=== PATIENT | female | born 1985 | race Caucasian/White ===

== ENCOUNTER → 2018-10-20 | Outpatient (CLI) | payer MEDICAID ==
[~2018-10-20] MED LIST: ALPR.5T PO; CATHETER FLUSH 10 ML SYR IV PRN; HYOS0.1281 PO; INDO25CA PO; LORA-794 PO; LTRS15C TOP; NF-ESOM40C PO; NFPRILOC40 PO; PANT20TA2 PO; SCR1T1 PO; [UNRECOGNIZED DRUG - OTHER]
--- NOTE | 2018-10-20 13:13 | Diagnostic Imaging Report ---
Indication: Right upper quadrant pain. Technique: Acquisitions were acquired over the abdomen after administration of 5.46 mCi of technetium 99m Choletec. At 45 minutes the patient drank a can of ensure to evaluate the ejection fraction. Findings: There is homogeneous uptake of isotope throughout the liver. There is significant accumulation within the gallbladder by 30 minutes. There is free flow of activity in small bowel. There was however an abnormally low ejection fraction of 21.3%. Impression: No evidence of cystic duct obstruction however there is an abnormally low ejection fraction of 21.3%. Dictated by: Dictated on workstation # [id number]
== END ==
LOC: MERGE 09:06 → CARD 09:06 → EDBD 09:06
PROVIDERS: ATTEND Surgery
DX: R10.11 Right upper quadrant pain (principal); K82.8 Other specified diseases of gallbladder
CPT/HCPCS: 78227

== ENCOUNTER 2018-10-28 05:47 | Outpatient (CLI) | payer MEDICAID ==
[~2018-10-28] VITALS: Ht 154.9 cm; Wt 93.4 kg
[~2018-10-28 05:47] MED LIST changes: -CATHETER FLUSH 10 ML SYR IV PRN
[2018-10-28] MEDS ORDERED: DEXL60CA PO (13:26)
== END 2018-10-28 13:44 | disposition home or self-care (01) ==
LOC: PREOP 05:47
PROVIDERS: ATTEND Surgery
DX: Z01.818 Encounter for other preprocedural examination (principal)

== ENCOUNTER 2018-10-30 11:47 | Day surgery (SDC) | payer MEDICAID ==
[~2018-10-30] VITALS: Ht 154.9 cm; Wt 93.4 kg
[~2018-10-30 11:47] MED LIST changes: +DEXL60CA PO
--- OUTSIDE RECORDS SUMMARY | 2018-10-30 11:50 | XMS REPORT ---
Author Author ANGELY [facility] Address Unknown Care Team Providers Care Mill Oiler Name Role Phone Nolan ANGELY Unavailable PROBLEMS Type Condition ICD9-CM Code WSC01-MT Code Onset Dates Condition Status SNOMED Code Problem Unspecified vaginitis and vulvovaginitis 616.10 Active 697357003 Problem Unspecified otitis media 382.9 Active 50371921 Problem Acute tonsillitis 463 Active 53759803 Problem Other specified viral warts 078.19 Active 63419623 Problem Abdominal pain, generalized 789.07 Active 619962197 Problem Dermatophytosis of groin and perianal area 110.3 Active 739267189 Problem Encounter for long-term (current) use of other medications V58.69 Active 495885631 Problem Obsessive-compulsive disorders 300.3 Active 679598216 Problem Posttraumatic stress disorder 309.81 Active 58693813 Problem Candidiasis of skin and nails 112.3 Active 447477900 Problem Generalized anxiety disorder 300.02 Active 59286832 Problem Unspecified myalgia and myositis 729.1 Active 190773538 Problem Cellulitis and abscess of face 682.0 Active 296411000 Problem Urinary frequency 788.41 Active 082379092 Problem Dysuria 788.1 Active 77960461 Problem Dyspareunia 625.0 Active 51253577 Problem Leukorrhea, not specified as infective 623.5 Active 642172862 Problem Irregular menstrual cycle 626.4 Active 11203325 Problem Urinary tract infection, site not specified 599.0 Active 71564682 Problem Unspecified symptom associated with female genital organs 625.9 Active 423623076 Problem Irritable bowel syndrome 564.1 Active 20510643 ALLERGIES Substance Reaction Event Type Date Status Penicillin G Potassium Unknown Drug Allergy Oct, Active SOCIAL HISTORY Never Assessed PLAN OF CARE Activity Details Follow Up prn Reason:Restorative; O&R VITAL SIGNS Height 61 in 2016-10-17 Blood pressure systolic 121 mmHg 2016-10-17 Blood pressure diastolic 73 mmHg 2016-10-17 MEDICATIONS Medication Instructions Dosage Frequency Start Date End Date Duration Status Protonix Active RESULTS No Results PROCEDURES Procedure Date Ordered Result Body Site LTD ORAL EVALUATION - PROBLEM FOCUS October 17, 2016 INTRAORL-PERIAPICAL 1 FILM 65209 October 17, 2016 INTRAORL-PERIAPICAL EA ADD FILM October 17, 2016 IMMUNIZATIONS No Known Immunizations MEDICAL (GENERAL) HISTORY Type Description Date Surgical History Tubes tie 05/23/13
--- OUTSIDE RECORDS SUMMARY | 2018-10-30 11:51 | XMS REPORT ---
Author Author KALIN OWUSU [facility] eClinicalWorks Address Unknown Phone Unavailable Care Team Providers Care Chain Maker Hand Name Role Phone KALIN OWUSU CP Unavailable Allergies, Adverse Reactions, Alerts Substance Reaction Event Type Penicillin G Potassium Info Not Available Drug Allergy Problems Problem Type Condition Code Onset Dates Condition Status Problem Generalized anxiety disorder 300.02 Active Problem Leukorrhea, not specified as infective 623.5 Active Problem Urinary tract infection, site not specified 599.0 Active Problem Candidiasis of skin and nails 112.3 Active Problem Posttraumatic stress disorder 309.81 Active Problem Urinary frequency 788.41 Active Assessment Dental examination Z01.20 Active Problem Unspecified vaginitis and vulvovaginitis 616.10 Active Problem Cellulitis and abscess of face 682.0 Active Problem Unspecified otitis media 382.9 Active Problem Dyspareunia 625.0 Active Problem Dysuria 788.1 Active Problem Irritable bowel syndrome 564.1 Active Problem Unspecified symptom associated with female genital organs 625.9 Active Problem Irregular menstrual cycle 626.4 Active Problem Abdominal pain, generalized 789.07 Active Problem Dermatophytosis of groin and perianal area 110.3 Active Problem Unspecified myalgia and myositis 729.1 Active Problem Acute tonsillitis 463 Active Problem Encounter for long-term (current) use of other medications V58.69 Active Problem Other specified viral warts 078.19 Active Problem Obsessive-compulsive disorders 300.3 Active Medications Medication Code System Code Instructions Start Date End Date Status Dosage Protonix [facility] [id number] not defined Procedures Procedure Coding System Code Date LTD ORAL EVALUATION - PROBLEM FOCUS CPT-4 D0140 March 15, 2016 Vital Signs Date/Time: March 15, 2016 Blood Pressure Diastolic 79 mmHg Blood Pressure Systolic 113 mmHg Height 61 in Results No Known Results Summary Purpose eClinicalWorks Submission
[2018-10-30] MEDS ORDERED: BUP/EPI 0.5% 1:200,000 (SENSORCAINE) 30 ML VIAL ONE (11:54)
[2018-10-30] MEDS ORDERED: LACTATED RINGERS 1,000 ML IV PRN ×2 (12:00→12:37)
[2018-10-30] MEDS ORDERED: CLINDAMYCIN 600 MG/50 ML IVPB 50 ML IV ONE (12:00)
[2018-10-30 12:05] VITALS: BP 127/80
[2018-10-30 12:32] LABS: BASOPHILS # (AUTO) 0.1 10^3/uL (0.0-0.1); BASOPHILS % (AUTO) 1 % (0-10); EOSINOPHILS # (AUTO) 0.2 10^3/uL (0.0-0.3); EOSINOPHILS % (AUTO) 2 % (0-10); HEMATOCRIT 42 % (35-52); LYMPHOCYTES # (AUTO) 2.2 X 10^3 (1.0-4.0); LYMPHOCYTES % (AUTO) 22 % (12-44); MEAN CORPUSCULAR HEMOGLOBIN 29 PG (25-34); MEAN CORPUSCULAR HGB CONC 34 G/DL (32-36); MEAN CORPUSCULAR VOLUME 86 FL (80-99); MEAN PLATELET VOLUME 9.7 FL (7.4-10.4); MONOCYTES # (AUTO) 0.7 X 10^3 (0.0-1.0); MONOCYTES % (AUTO) 7 % (0-12); NEUTROPHILS # (AUTO) 6.6 X 10^3 (1.8-7.8); NEUTROPHILS % (AUTO) 68 % (42-75); PLATELET COUNT 319 10^3/uL (130-400); RED CELL DISTRIBUTION WIDTH 12.5 % (10.0-14.5); WHITE BLOOD COUNT 9.6 10^3/uL (4.3-11.0)
--- NOTE | 2018-10-30 12:33 | Progress Note-Pre Operative ---
Pre-Operative Progress Note H&P Reviewed The H&P was reviewed, patient examined and no changes noted. Date Seen by Provider: Oct 30, 2018 Time Seen by Provider: 12:00 Date H&P Reviewed: Oct 30, 2018 Time H&P Reviewed: 12:00 Pre-Operative Diagnosis: symptomatic biliary dyskinesia FILOMENA LAWRENCE MD Oct 30, 2018 12:33
[2018-10-30] MEDS ORDERED: HYDR-34 PO (12:35)
--- NOTE | 2018-10-30 12:35 | Discharge Inst-Surgical ---
D/C Lap Instructions-MELINDA New, Converted, or Re-Newed RX: RX on Chart Follow Up Appt in 2 weeks Activity as tolerated No driving for 24 hours No driving while on pain medications Incentive Spirometry use every 2 hours while awake Regular Diet Symptoms to Report: Fever over 101 degree F, Nausea/Vomiting Infection Signs and Symptoms to report: Increased redness, Foul odor of wound, Increased drainage Bathing instructions: May shower Operative Area Clean/Dry; Keep incision clean/dry If any problems/questions: Contact your physician or go to Emergency Room FILOMENA LAWRENCE MD Oct 30, 2018 12:35
[2018-10-30] MEDS ORDERED: oxyCODONE/APAP 5/325MG (PERCOCET 5) TABLET PO PRN (12:45)
[2018-10-30] MEDS ORDERED: MIDAZOLAM 2 MG/2 ML (VERSED) VIAL IV ONE (12:45)
[2018-10-30] MEDS ORDERED: morphine INJ 10 MG/ML 1ML (SYR OR VIAL) IVP PRN (12:45)
[2018-10-30] MEDS ORDERED: ONDANSETRON 4 MG/2 ML (SDV) Z0FRAN IVP PRN ×2 (12:45→14:15)
[2018-10-30] MEDS ORDERED: ACETAMINOPHEN 325 MG TABLET PO PRN (12:45)
[2018-10-30] MEDS ORDERED: fentaNYL INJECTION 100 MCG/2 ML AMP ONE ×3 (13:03→14:18)
[2018-10-30] MEDS ORDERED: LIDOCAINE PF 2% 5 ML (XYLOCAINE) VIAL ONE (13:44)
[2018-10-30] MEDS ORDERED: SEVOFLURANE (ULTANE) 15 ML INHAL SOLN ONE ×2 (13:44→14:18)
[2018-10-30] MEDS ORDERED: DEXAMETHASONE 10 MG/ML (DECADRON) 1 ML VIAL ONE (13:44)
[2018-10-30] MEDS ORDERED: proPOfol 200 MG/20 ML (DIPRIVAN) VIAL IV ONE (13:44)
[2018-10-30] MEDS ORDERED: ONDANSETRON 4 MG/2 ML (SDV) Z0FRAN ONE (13:44)
[2018-10-30] MEDS ORDERED: ROCURONIUM 10 MG/ML 5 ML SYRINGE IV ONE (13:44)
[2018-10-30] MEDS ORDERED: KETOROLAC 30 MG/ML VIAL ONE (13:45)
[2018-10-30] MEDS ORDERED: NEOSTIGMINE 1 MG/ML 5 ML SYRINGE ONE (13:46)
[2018-10-30] MEDS ORDERED: GLYCOPYRROLATE 0.2 MG/ML (ROBINUL) 2 ML VIAL ONE (13:46)
[2018-10-30] MEDS ORDERED: fentaNYL INJECTION 100 MCG/2 ML AMP IVP ONE (14:15)
[2018-10-30] MEDS ORDERED: MEPERIDINE (DEMEROL) INJ 50 MG/ML IVP ONE (14:15)
[2018-10-30] MEDS ORDERED: PROMETHAZINE INJ 25 MG/ML (PHENERGAN) AMP IVP ONE (14:15)
--- NOTE | 2018-10-30 14:25 | Progress Note-Post Operative ---
Post-Operative Progess Note Surgeon (s)/Advanced Manager (s) Surgeon FILOMENA LAWRENCE MD Advanced Manager: rama king SUPERVISOR HOUSECLEANER Pre-Operative Diagnosis symptomatic biliary dyskinesia Post-Operative Diagnosis chronic calculous cholecystitis. Procedure & Operative Findings Date of Procedure 10/30/18 Procedure Performed/Findings laparoscopic cholecystectomy Anesthesia Type GET Estimated Blood Loss Estimated blood loss (mL): minimal Specimens/Packing Specimens Removed gallbladder FILOMENA LAWRENCE MD Oct 30, 2018 14:25
[2018-10-30 15:00] VITALS: BP 112/80
[2018-10-30 15:30] VITALS: BP 112/66
[2018-10-30 16:00] VITALS: BP 116/71
[2018-10-30 16:05] VITALS: BP 116/71
--- NOTE | 2018-10-30 18:57 | OPERATIVE REPORT ---
DATE OF SERVICE: 10/30/2018 ATTENDING PRIMARY CARE PHYSICIAN: Dr. Chika Camejo. PREOPERATIVE DIAGNOSIS: Symptomatic biliary dyskinesia. POSTOPERATIVE DIAGNOSIS: Chronic calculous cholecystitis. PROCEDURE: Laparoscopic cholecystectomy. SURGEON: Filomena Lawrence MD BREAKER TENDER: Hakeem Byrd APRN ANESTHESIA: General endotracheal. ESTIMATED BLOOD LOSS: Minimal. FINDINGS: Distended gallbladder with moderate sized solitary gallstone. DISPOSITION: The patient tolerated the procedure well. INDICATIONS: The patient is a 33-year-old female, who has had issues with reflux esophagitis and underwent an EGD in 2013, found to have a stage II reflux esophagitis as well as a small hiatal hernia and a mild to moderate gastritis. She also underwent a colonoscopy, which did not show any major abnormalities. She has developed epigastric pain as well as nausea and vomiting usually after a meal. An ultrasound did not show any gallstones and a HIDA scan was performed, which showed a normal ejection fraction; however, immediately after the administration of a Kinevac analogue, she did have abdominal bloating, diarrhea and right upper abdominal quadrant pain. DESCRIPTION OF PROCEDURE: The patient was brought to the operating room, laid supine on the table. After adequate IV pain and sedating medications and general endotracheal intubation, the abdomen was prepped and draped in standard surgical fashion. A 0.5% Marcaine with epinephrine was then used to anesthetize the overlying skin in the left upper abdominal quadrant and a transverse skin incision was made using 15 blade. An 0 silk suture was applied to the medial aspect of the incision for traction and a Veress needle was inserted with a low opening pressure of 0 mmHg. The abdomen was insufflated to 15 mmHg pressure. The Veress needle was removed and a 5 mm Xcel trocar was placed, followed by a 5 mm 45-degree angle laparoscope visualizing the peritoneal cavity. A 4-quadrant abdominal exploration was performed. There was a slightly distended gallbladder. What was visualized of the liver, omentum and stomach, small bowel appeared normal. Under direct visualization, we then proceed to place a supraumbilical 10 mm port after the skin and peritoneal lining were anesthetized using 0.5% Marcaine with epinephrine and a transverse skin incision was made using a 15 blade. In a similar manner, a right upper abdominal quadrant 5 mm port was placed. The patient was then placed in reverse Trendelenburg position as well as a plane right side up, left side down. The fundus of the gallbladder was then retracted anteriorly and superiorly. The hepatoduodenal ligament was then opened using blunt dissection as well as cautery on the hook instrument. The entire critical view of safety was identified including the triangle of Calot as well as the cystic duct and artery as the only two structures going into the gallbladder as well as the cystic plate behind the proximal gallbladder. A timeout was then taken and cystic duct and artery were then clipped proximally and distally and cut with EndoShears. The gallbladder was then dissected off of the liver bed using cautery on the hook instrument with visualization of good hemostasis as well as no leaking ducts of Luschka. The gallbladder was removed through the 10 mm port site using an EndoCatch bag. The 10 mm port site fascia and peritoneum were then closed under direct visualization using a Hakeem-Neelima device and 0 Vicryl suture. The abdomen was desufflated. The remaining ports removed. All skin incisions were closed using 4-0 Monocryl running subcuticular sutures. The gallbladder was examined on the backtable and a moderate size solitary gallstone was identified. The patient tolerated the procedure well. We will start IV and oral pain medication as well as a clear liquid diet. Once she is tolerating clears, has good pain control with oral pain medications, ambulating well, we will discharge her home. She will be instructed to do no heavy lifting or exertion for the next two weeks. Job ID: [id number] DocumentID: [id number] Dictated Date: 10/30/2018 13:56:12 Technical Sales Representative Date: 10/30/2018 18:56:59 Dictated By: FILOMENA LAWRENCE MD
== END 2018-10-30 16:05 | disposition home or self-care (01) ==
LOC: SDC 11:47
PROVIDERS: ATTEND Surgery
DX: K81.1 Chronic cholecystitis (principal); K21.9 Gastro-esophageal reflux disease without esophagitis; F17.210 Nicotine dependence, cigarettes, uncomplicated
CPT/HCPCS: 36415; 84703; 85025; 87081; 94664

== ENCOUNTER → 2019-05-18 | Outpatient (CLI) | payer MEDICAID ==
[~2019-05-18] MED LIST changes: +HYDR-34 PO
--- NOTE | 2019-05-18 13:17 | Diagnostic Imaging Report ---
EXAMINATION: Right ankle at 1227 hours. INDICATION: Ankle pain. Three views were obtained. COMPARISON: There are no prior studies available for comparison. FINDINGS: There is a small 4.6 x 7.9 mm smoothly lobulated calcific density interposed between the tip of the lateral malleolus and the lateral aspect of the talus. I suspect that this is a sequela of prior trauma as opposed to an acute injury. There is no fracture, dislocation or acute bony abnormality evident. The ankle mortise is not widened and the talar dome is smooth. There is soft tissue edema about the ankle joint, particularly over the lateral malleolus. IMPRESSION: 1. There is no evidence for an acute bony abnormality. 2. The calcific density interposed between the lateral malleolus and lateral aspect of the talus is more likely due to prior trauma than to an acute abnormality. Even so, clinical followup is recommended as there does seem to be soft tissue edema in this area. Dictated by: Dictated on workstation # [id number]
== END ==
LOC: RAD 12:16
PROVIDERS: ATTEND Nurse Practitioner Family
DX: M25.571 Pain in right ankle and joints of right foot (principal)
CPT/HCPCS: 73610

== ENCOUNTER → 2019-06-15 | Outpatient (CLI) | payer MEDICAID ==
--- NOTE | 2019-06-15 11:19 | Diagnostic Imaging Report ---
PROCEDURE: US Non-ob pelvis comp/trans. TECHNIQUE: Multiple realtime grayscale images were obtained of the pelvis in various projections endovaginally. Transabdominal imaging was also performed. INDICATION: Pelvic pain. Uterus measures 8.2 x 5.8 x 4.3 cm. Endometrium is 13 mm in thickness. No myometrial mass is detected. Right ovary measures 3.5 x 2.8 x 2.0 cm and the left ovary measures 3.1 x 1.9 x 1.9 cm. Right ovary does contain a 13 mm cyst. There are follicles involving the left ovary. There is blood flow to both ovaries. No adnexal mass or free fluid is seen. IMPRESSION: Small right ovarian cyst. The study is otherwise unremarkable. Dictated by: Dictated on workstation # [id number]
== END ==
LOC: RAD 09:31
PROVIDERS: ATTEND Family Medicine
DX: N83.201 Unspecified ovarian cyst, right side (principal)
CPT/HCPCS: 76830; 76856

== ENCOUNTER 2019-07-29 06:32 | Outpatient (CLI) | payer MEDICAID ==
[~2019-07-29] VITALS: Ht 152 cm; Wt 75.9 kg
[2019-07-29] MEDS ORDERED: DEXL60CA PO (14:08)
== END 2019-07-29 14:05 ==
LOC: PREOP 06:32
PROVIDERS: ATTEND Surgery
DX: Z01.818 Encounter for other preprocedural examination (principal)

== ENCOUNTER 2021-02-16 18:41 | Emergency (ER) | payer MEDICAID ==
[~2021-02-16] VITALS: Ht 152 cm; Wt 71.0 kg
--- NOTE | 2021-02-16 19:14 | ED EENT ---
History of Present Illness General Chief Complaint: Eye Problems Stated Complaint: SWOLLEN L EYE Nursing Triage Note: PT STATES LT EYE PAIN AND SWELLING FOR ABOUT 5 DAYS. BLURRY VISION. Source: patient Exam Limitations: no limitations History of Present Illness Date Seen by Provider: Feb 16, 2021 Time Seen by Provider: 19:00 Initial Comments Patient is a 35-year-old female who presents to the emergency department today with a chief complaint of left eyelid swelling and discomfort and a little bit of blurry vision. Pain with extraocular muscle movement on the left and pain in her left brow and in her left zygoma area. Patient states onset of symptoms about 5 or 6 days ago. Patient states that she has been using her sisters TobraDex drops multiple times throughout the day and this is day 3 of using the drops. She has had no improvement in symptoms. She denies fevers, chills, URI symptoms, no rhinorrhea sore throat earache. She states she did have a little bit of a sore throat the other day but that has resolved. Patient states she is not a diabetic. She denies any ocular trauma. She does not wear contact lenses. All other review of systems reviewed and negative except as stated above. Timing/Duration: gradual Location: eye (L) Prearrival Treatment: prescription meds Associated Symptoms: denies symptoms Allergies and Home Medications Allergies Coded Allergies: Penicillins (Unverified Allergy, Unknown, 07/29/19) Home Medications Dexlansoprazole 60 Mg , 60 MG PO DAILY, (Reported) Sulfamethoxazole/Trimethoprim 1 Each Tablet, 1 EACH PO BID Prescribed by: MURIEL ANN on 02/16/212056 Patient Home Medication List Home Medication List Reviewed: Yes Review of Systems Review of Systems Constitutional: see HPI Eyes: Blurred Vision, Decreased Acuity Ears: No Symptoms Reported Nose: no symptoms reported Mouth: no symptoms reported Throat: other (mild sore throat) Respiratory: no symptoms reported Cardiovascular: no symptoms reported Gastrointestinal: no symptoms reported Musculoskeletal: no symptoms reported Skin: no symptoms reported Neurological: No Symptoms Reported Past Vlhghic-Paulqy-Ezfxof Hx Patient Social History Tobacco Use?: Yes Tobacco type used: Cigarettes Smoking Status: Current Everyday Smoker Alcohol Use?: Yes Alcohol type: Beer Seasonal Allergies Seasonal Allergies: No Past Medical History Surgeries: Yes (D&C) Gallbladder, Tubal Ligation Respiratory: No Cardiac: No Neurological: No Last Menstrual Period: Jan 28, 2021 Sexually Transmitted Disease: No HIV/AIDS: No Genitourinary: No Gastrointestinal: Yes Gastroesophageal Reflux, Chronic Diarrhea Musculoskeletal: No Endocrine: No HEENT: Yes (GLASSES) Loss of Vision: Denies Hearing Impairment: Denies Cancer: No Psychosocial: Yes (MILD) Anxiety, Depression Integumentary: Yes Eczema Blood Disorders: No Adverse Reaction/Blood Tranf: No (N/A) Visual Acuity : Vision Acuity Degree: 20/20 Physical Exam Vital Signs Vital Signs - First Documented 02/16/21 18:52 Temp 36.5 Pulse 93 Resp 18 B/P (MAP) 125/94 (104) Pulse Ox 97 O2 Delivery Room Air Height, Weight, BMI Height: 5'1.00" Weight: 206lbs. 0.0oz. 93.381472ff; 30.00 BMI Method: General Appearance: WD/WN, no apparent distress Eyes: right eye normal inspection, right eye PERRL; left eye conjunctival inflammation, left eye lid inflammation (upper lid and medial canthus), left eye other (ciliary fluch mild); bilateral eye EOMI Nose: normal inspection Mouth/Throat: normal mouth inspection Cardiovascular: regular rate, rhythm Respiratory: no respiratory distress, no accessory muscle use Neurologic/Psychiatric: burglar alarm mechanic II-XII nml as tested, alert, normal mood/affect, oriented x 3 Skin: normal color, warm/dry Progress/Results/Core Measures Results/Orders My Orders Orders - MURIEL ANN MD Tetracaine 0.5% Ophth Nery Sdv (Tetracai (02/16/21 19:15) Fluorescein Strips (Ttjqs-Y-Qzbnpl) (02/16/21 19:15) Ct Orbit Wo (02/16/21 19:26) Prednisolone 1% Ophthalmic Nayeli (Pred For (02/16/21 21:00) Sulfamethoxazole/Trimet Ds Tab (Bactrim (02/16/21 21:00) Medications Given in ED Current Medications Medications Dose Ordered Sig/Kimo Route Start Time Stop Time Status Last Admin Dose Admin Fluorescein Sodium 1 mg ONCE ONCE OU 02/16/21 19:15 02/16/21 19:16 DC 02/16/21 19:09 1 MG Tetracaine HCl 1 OR 2 DROPS INTO AFFEC... ONCE ONCE OP 02/16/21 19:15 02/16/21 19:16 DC 02/16/21 19:09 1 ML Trimethoprim/ Sulfamethoxazole 1 ea ONCE ONCE PO 02/16/21 21:00 02/16/21 21:01 DC 02/16/21 21:13 1 EA Vital Signs/I&O 02/16/21 02/16/21 18:52 21:16 Temp 36.5 36.5 Pulse 93 93 Resp 18 18 B/P (MAP) 125/94 (104) 125/94 (104) Pulse Ox 97 97 O2 Delivery Room Air Blood Pressure Mean: 104 Progress Progress Note : Time: 19:32 Progress Note Case discussed with Dr. VELA on for optometry. Recommends in favor of CT in the orbits without contrast. Attention to the thickness of the extraocular muscles. He recommends Pred forte every 2 hours while she is awake until they can see her in the office at 8 AM in the morning. He also recommends cycloplegic to the left eye which will help her with her photophobia. CT of the orbits is ordered at this time. Pending results. Diagnostic Imaging Diagonstic Imaging: CT Comments [facility], [place] NAME: CARMEN BUSH [facility] REC#: [id number] PT STATUS: REG ER : 1985 PHYSICIAN: MURIEL ANN MD ADMIT DATE: 02/16/21/ER Draft Date of Exam:02/16/21 CT ORBIT WO PROCEDURE: CT orbit without contrast. TECHNIQUE: Multiple contiguous axial images were obtained through the facial bones without the use of intravenous contrast. Auto Exposure Controls were utilized during the CT exam to meet ALARA standards for radiation dose reduction. INDICATION: Left eye pain and swelling for about 5 days. Blurry vision. EXAMINATION: CT orbits without contrast 02/16/2021 FINDINGS: Both globes are bilaterally symmetric in appearance with the post-septal spaces unremarkable. There is a soft tissue abnormality medial to the left lobe and lateral to the nasal bone measuring approximately 1 x 1.2 x 1.5 cm in size and nonspecific especially without contrast. This could be on the basis of an inflammatory or infectious etiology with a soft tissue mass not excluded. Clinical correlation with history and symptoms recommended. Remaining visualized soft tissues unremarkable. The osseous structures intact. There is mucosal thickening within the visualized paranasal sinuses with no acute sinus disease appreciated. Visualized mastoid air cells clear IMPRESSION: 1. Nonspecific soft tissue abnormality medial to the left globe as described above. Dictated on workstation # [id number] Dict: 02/16/212001 Trans: 02/16/212027 CV [id number] Interpreted by: YENI ISSA MD Electronically signed by: Departure Impression Primary Impression: Preseptal cellulitis of left eye Disposition: HOME, SELF-CARE Condition: Stable Departure-Patient Inst. Decision time for Depature: 20:53 Referrals: MARILU VELA OD, RACHEL L MD (PCP/Family) Primary Care Physician Patient Instructions: Preseptal Cellulitis ED Add. Discharge Instructions: Take the antibiotics, Bactrim 1 twice daily for the next 5 days. Use the Pred forte drops 1 in the left eye every 2 hours while awake until you are seen tomorrow at Dr. VELA's office. Please show up at 8 AM at his office for follow-up of your left eye redness, swelling and pain. Return to the emergency room for any worsening swelling, eye pain, fever or other emergent concerns. We have given you a drop of an eye dilator. This will last for about the next 12 hours. Scripts Sulfamethoxazole/Trimethoprim (Bactrim Ds Tablet) 1 Each Tablet 1 EACH PO BID, #10 TAB Prov: MURIEL ANN MD 02/16/21 MURIEL ANN MD Feb 16, 2021 19:14
[2021-02-16] MEDS ORDERED: FLUORESCEIN (FLUOR-I-STRIPS) 1 MG STRP OU ONE (19:15)
[2021-02-16] MEDS ORDERED: TETRACAINE 0.5% OPHTH SOLN 4 ML BTL (SINGLE DOSE ONLY) OP ONE (19:15)
[2021-02-16] MEDS ORDERED: CYCLOPENTOLATE 1% OP SCH (20:15)
--- NOTE | 2021-02-16 20:30 | Diagnostic Imaging Report ---
PROCEDURE: CT orbit without contrast. TECHNIQUE: Multiple contiguous axial images were obtained through the facial bones without the use of intravenous contrast. Auto Exposure Controls were utilized during the CT exam to meet ALARA standards for radiation dose reduction. INDICATION: Left eye pain and swelling for about 5 days. Blurry vision. EXAMINATION: CT orbits without contrast 02/16/2021 FINDINGS: Both globes are bilaterally symmetric in appearance with the post-septal spaces unremarkable. There is a soft tissue abnormality medial to the left lobe and lateral to the nasal bone measuring approximately 1 x 1.2 x 1.5 cm in size and nonspecific especially without contrast. This could be on the basis of an inflammatory or infectious etiology with a soft tissue mass not excluded. Clinical correlation with history and symptoms recommended. Remaining visualized soft tissues unremarkable. The osseous structures intact. There is mucosal thickening within the visualized paranasal sinuses with no acute sinus disease appreciated. Visualized mastoid air cells clear IMPRESSION: 1. Nonspecific soft tissue abnormality medial to the left globe as described above. Clinical follow-up recommended. If this does not resolve follow-up CT with contrast or MRI recommended. Dictated by: Dictated on workstation # [id number]
[2021-02-16] MEDS ORDERED: SULF1TAB35 PO (20:57)
[2021-02-16] MEDS ORDERED: prednisoLONE 1% OPTH (PRED FORTE) 5 ML BTL OU SCH (21:00)
[2021-02-16] MEDS ORDERED: TRIM/SULFAMETH 160/800 (SEPTRA DS) TAB PO ONE (21:00)
[2021-02-16 21:16] VITALS: BP 125/94
== END 2021-02-16 21:16 | disposition home or self-care (01) ==
LOC: EDUNIT# 18:41 → ER 18:43
DX: H05.012 Cellulitis of left orbit (principal); K21.9 Gastro-esophageal reflux disease without esophagitis; F17.210 Nicotine dependence, cigarettes, uncomplicated; Z79.899 Other long term (current) drug therapy
CPT/HCPCS: 70480

== ENCOUNTER 2021-02-18 16:08 | Emergency (ER) | payer MEDICAID ==
[~2021-02-18] VITALS: Ht 152 cm; Wt 71.0 kg
[~2021-02-18 16:08] MED LIST changes: +SULF1TAB35 PO
[2021-02-18] MEDS ORDERED: TETRACAINE 0.5% OPHTH SOLN 4 ML BTL (SINGLE DOSE ONLY) ONE (16:38)
[2021-02-18] MEDS ORDERED: TETRACAINE 0.5% OPHTH SOLN 4 ML BTL (SINGLE DOSE ONLY) OU ONE (16:45)
--- NOTE | 2021-02-18 16:59 | ED EENT ---
History of Present Illness General Chief Complaint: Eye Problems Stated Complaint: DX W/ CELLULITIS L EYE/NOT IMPROVING Nursing Triage Note: PT PRESENTS TO ED VIA POV FROM HOME WITH COMPLAINTS OF L EYE LID SWELLING X 9 DAYS. PT REPORTS SHE HAS SEEN [facility] AND BEEN SEEN IN THE ED FOR IT. PT REPORTS AFTER 4 DOSES OF BACTRIM IT IS STILL NOT IMPROVING. Source: patient Exam Limitations: no limitations History of Present Illness Date Seen by Provider: Feb 18, 2021 Time Seen by Provider: 16:30 Initial Comments This 35-year-old woman presents to the emergency room with complaints of left upper eyelid swelling, pain, and erythema. She was diagnosed with periorbital cellulitis and started on Bactrim of which she is taken 4 doses. She was also started on TobraDex by the eye doctor. She has had increasing swelling. It is now apparent that she has an abscess that is coming to a head near the epicanthal fold. The area is extremely tender and painful. She denies any fever. She has had slightly blurry vision. No notable diplopia. Allergies and Home Medications Allergies Coded Allergies: Penicillins (Unverified Allergy, Unknown, 07/29/19) Home Medications Dexlansoprazole 60 Mg Cap., 60 MG PO DAILY, (Reported) Sulfamethoxazole/Trimethoprim 1 Each Tablet, 1 EACH PO BID Prescribed by: MURIEL ANN on 02/16/212056 Sulfamethoxazole/Trimethoprim 1 Each Tablet, 1 EACH PO BID Prescribed by: TERRELL TOLLIVER on 02/18/21 1724 Patient Home Medication List Home Medication List Reviewed: Yes Review of Systems Review of Systems Constitutional: no symptoms reported Eyes: See HPI Ears: No Symptoms Reported Nose: no symptoms reported Mouth: no symptoms reported Throat: no symptoms reported Respiratory: no symptoms reported Cardiovascular: no symptoms reported Gastrointestinal: no symptoms reported Musculoskeletal: no symptoms reported Skin: see HPI Neurological: No Symptoms Reported Hematologic/Lymphatic: No Symptoms Reported Past Wolqwkm-Hwxice-Omafuo Hx Patient Social History Tobacco Use?: No Smoking Status: Never a Smoker Alcohol Use?: Yes Alcohol Frequency: Once in a while Pt feels they are or have been: No Seasonal Allergies Seasonal Allergies: No Past Medical History Surgeries: Yes (D&C) Gallbladder, Tubal Ligation Respiratory: No Cardiac: No Neurological: No Reproductive Disorders: No Sexually Transmitted Disease: No HIV/AIDS: No Genitourinary: No Gastrointestinal: Yes Gastroesophageal Reflux, Chronic Diarrhea Musculoskeletal: No Endocrine: No HEENT: Yes (GLASSES) Loss of Vision: Denies Hearing Impairment: Denies Cancer: No Psychosocial: Yes (MILD) Anxiety, Depression Integumentary: Yes Eczema Blood Disorders: No Adverse Reaction/Blood Tranf: No (N/A) Physical Exam Vital Signs Vital Signs - First Documented 02/18/21 16:28 Temp 36.6 Pulse 85 Resp 20 B/P (MAP) 121/73 (89) Pulse Ox 100 Height, Weight, BMI Height: 5'1.00" Weight: 206lbs. 0.0oz. [id number]; 30.00 BMI Method: General Appearance: WD/WN, no apparent distress Eyes: right eye normal inspection; left eye other (Large abscess on the medial upper eyelid with a bhatia near the epicanthal fold. It is not yet draining. The surrounding tissue including the majority of the upper eyelid is erythematous, tender, and swollen.); bilateral eye PERRL, bilateral eye EOMI Ears: bilateral ear auricle normal Nose: other (Patchy erythema of the nose) Mouth/Throat: normal mouth inspection Cardiovascular: regular rate, rhythm, no edema Respiratory: no respiratory distress Neurologic/Psychiatric: rough planer tender II-XII nml as tested, no motor/sensory deficits, alert, normal mood/affect, oriented x 3 Skin: warm/dry, other (See above) Procedures/Interventions I&D : Blade Size: 11 Progress Small amount of lidocaine was injected over the surface of the abscess after cleaning with chlorhexidine wipe. A tiny incision was made over the center of the abscess. This resulted in immediate expression of a large quantity of purulent material. Culture was obtained. Progress/Results/Core Measures Results/Orders My Orders Orders - TERRELL KIMBALL MD Tetracaine 0.5% Ophth Nery Sdv (Tetracai (02/18/21 16:45) Tetracaine 0.5% Ophth Nery Sdv (Tetracai (02/18/21 16:38) Fentanyl Inj (Sublimaze Injection) (02/18/21 17:00) Ketorolac Injection (Toradol Injection) (02/18/21 17:00) Clindamycin 600 Mg/50 Ml Ivpb (Cleocin P (02/18/21 17:00) Lidocaine 1% Inj 20 Ml (Xylocaine 1% Inj (02/18/21 17:08) Wound Culture (02/18/21 17:25) Vital Signs/I&O Blood Pressure Mean: 89 Progress Progress Note #1: Time: 16:57 Progress Note Patient was seen and examined. Eye and epicanthal region were anesthetized with tetracaine. Skin was cleaned with chlorhexidine. The head of the abscess was nicked with a hypodermic needle. Thick pus began to be expressed. However, patient could not tolerate any pressure on the abscess to express the drainage. We discussed options including attempting to anesthetize locally with injection versus IV pain medications. Patient elects to use IV pain medication. Since we are establishing IV we will also administer clindamycin by IV route. Progress Note #2: Progress Note Even with IV pain medications, patient could not tolerate pressure to express the drainage from the present opening. Further options were discussed including incision and drainage. Patient was agreeable. A small insulin needle was used to inject a small amount of lidocaine under the skin above the abscess after cleaning again with chlorhexidine. A tiny incision was made directly over the most fluctuant area resulting in immediate expression of a large amount of p urulent material. The tissue was milked until no more purulent drainage could be expressed. The clindamycin 600 mg IV dose was infused. Patient was feeling much better by the time of discharge. Culture was obtained. Departure Impression Primary Impression: Abscess, eyelid Qualified Codes: H00.034 - Abscess of left upper eyelid Additional Impressions: Encounter for incision and drainage procedure Periorbital cellulitis Qualified Codes: L03.213 - Periorbital cellulitis Disposition: 01 HOME, SELF-CARE Condition: Improved Departure-Patient Inst. Decision time for Depature: 17:00 Referrals: HELDER ELDRIDGE MD (PCP/Family) Primary Care Physician Patient Instructions: Skin Abscess Add. Discharge Instructions: You may continue to encourage draining by applying warm compresses and sitting in a shower with warm water running over your face. Do this several times a day until it quits draining. Expect some bloody and puslike drainage to continue for a few days. Continue your antibiotics as prescribed. You may take ibuprofen up to 600 mg every 6 hours and Tylenol (acetaminophen) up to 1000 mg every 6 hours as needed for pain. Call with questions or concerns. If your infection is not completely resolved by the time you finish your current round of Bactrim, fill and complete the additional 5-day course. Return to the ER if you have worsening symptoms. All discharge instructions reviewed with patient and/or family. Voiced understanding. Scripts Sulfamethoxazole/Trimethoprim (Bactrim Ds Tablet) 1 Each Tablet 1 EACH PO BID, #10 TAB Prov: TERRELL KIMBALL MD 02/18/21 Copy Copies To 1: HELDER ELDRIDGE MD, JOSHUA T MD Feb 18, 2021 16:59
[2021-02-18] MEDS ORDERED: KETOROLAC 30 MG/ML VIAL IVP ONE (17:00)
[2021-02-18] MEDS ORDERED: fentaNYL INJ 100 MCG/2 ML AMP IVP ONE (17:00)
[2021-02-18] MEDS ORDERED: CLINDAMYCIN 600 MG/50 ML IVPB 50 ML IV ONE (17:00)
[2021-02-18] MEDS ORDERED: LIDOCAINE 1% INJ 20 ML 20 ML VIAL ONE (17:08)
[2021-02-18] MEDS ORDERED: SULF1TAB35 PO (17:24)
[2021-02-18 18:03] VITALS: BP 120/75
== END 2021-02-18 18:03 | disposition home or self-care (01) ==
LOC: EDUNIT# 16:08 → ER 16:10
DX: H00.034 Abscess of left upper eyelid (principal); L03.213 Periorbital cellulitis; K21.9 Gastro-esophageal reflux disease without esophagitis; Z79.899 Other long term (current) drug therapy
CPT/HCPCS: 10060; 87070; 87077; 87186; 87205

== ENCOUNTER 2021-04-05 19:51 | Emergency (ER) | payer MEDICAID ==
[~2021-04-05] VITALS: Ht 152 cm; Wt 72.0 kg
[~2021-04-05 19:51] MED LIST changes: -SULF1TAB35 PO; +SULF1TAB38 PO
--- NOTE | 2021-04-05 21:00 | ED EENT ---
History of Present Illness General Chief Complaint: Oral/Throat Problems Stated Complaint: SORE THROAT, POWER, EAR PAIN Source: patient Exam Limitations: no limitations History of Present Illness Date Seen by Provider: Apr 05, 2021 Time Seen by Provider: 20:57 Initial Comments c/o Left ear pain left-sided sore throat x4 days. Was seen by primary care on Saturday of this week and given a shot of Rocephin and prescription for Zithromax and prednisone and was swabbed for strep and states it was negative. Denies any improvement. Timing/Duration: abrupt Severity: moderate Prearrival Treatment: no prearrival treatment Associated Symptoms: denies symptoms Allergies and Home Medications Allergies Coded Allergies: Penicillins (Unverified Allergy, Unknown, 07/29/19) Home Medications Dexlansoprazole 60 Mg Padilla., 60 MG PO DAILY, (Reported) Sulfamethoxazole/Trimethoprim 1 Each Tablet, 1 EACH PO BID Prescribed by: MURIEL ANN on 02/16/212056 Sulfamethoxazole/Trimethoprim 1 Each Tablet, 1 EACH PO BID Prescribed by: TERRELL TOLLIVER on 02/18/21 1724 Patient Home Medication List Home Medication List Reviewed: Yes Review of Systems Review of Systems Constitutional: see HPI Eyes: No Symptoms Reported Ears: No Symptoms Reported Nose: no symptoms reported Mouth: no symptoms reported Throat: see HPI Respiratory: no symptoms reported Cardiovascular: no symptoms reported Musculoskeletal: no symptoms reported Past Esagyea-Gybbik-Kzseld Hx Seasonal Allergies Seasonal Allergies: No Past Medical History Surgeries: Yes (D&C) Gallbladder, Tubal Ligation Respiratory: No Cardiac: No Neurological: No Reproductive Disorders: No Sexually Transmitted Disease: No HIV/AIDS: No Genitourinary: No Gastrointestinal: Yes Gastroesophageal Reflux, Chronic Diarrhea Musculoskeletal: No Endocrine: No HEENT: Yes (GLASSES) Loss of Vision: Denies Hearing Impairment: Denies Cancer: No Psychosocial: Yes (MILD) Anxiety, Depression Integumentary: Yes Eczema Blood Disorders: No Adverse Reaction/Blood Tranf: No (N/A) Physical Exam Height, Weight, BMI Height: 5'1.00" Weight: 206lbs. 0.0oz. 93.634923oo; 30.00 BMI Method: General Appearance: WD/WN, no apparent distress Eyes: bilateral eye normal inspection, bilateral eye PERRL, bilateral eye EOMI Ears: bilateral ear auricle normal, bilateral ear canal normal, bilateral ear TM normal Mouth/Throat: other (The left tonsil is enlarged and has exudate there is no uvular deviation to suggest peritonsillar abscess) Neck: non-tender, full range of motion, lymphadenopathy (L) Cardiovascular: regular rate, rhythm, no murmur Respiratory: normal breath sounds, no respiratory distress, no accessory muscle use Gastrointestinal: normal bowel sounds, non tender Neurologic/Psychiatric: alert, normal mood/affect, oriented x 3 Skin: normal color, warm/dry Progress/Results/Core Measures Results/Orders Lab Results Laboratory Tests Test 04/05/21 21:38 Range/Units White Blood Count 11.9 H 4.3-11.0 10^3/uL Red Blood Count 4.47 3.80-5.11 10^6/uL Hemoglobin 14.4 11.5-16.0 g/dL Hematocrit 42 35-52 % Mean Corpuscular Volume 94 80-99 fL Mean Corpuscular Hemoglobin 32 25-34 pg Mean Corpuscular Hemoglobin Concent 34 32-36 g/dL Red Cell Distribution Width 11.8 10.0-14.5 % Platelet Count 211 130-400 10^3/uL Mean Platelet Volume 9.6 9.0-12.2 fL Immature Granulocyte % (Auto) 0 % Neutrophils (%) (Auto) 66 42-75 % Lymphocytes (%) (Auto) 26 12-44 % Monocytes (%) (Auto) 7 0-12 % Eosinophils (%) (Auto) 1 0-10 % Basophils (%) (Auto) 0 0-10 % Neutrophils # (Auto) 7.8 1.8-7.8 10^3/uL Lymphocytes # (Auto) 3.1 1.0-4.0 10^3/uL Monocytes # (Auto) 0.8 0.0-1.0 10^3/uL Eosinophils # (Auto) 0.1 0.0-0.3 10^3/uL Basophils # (Auto) 0.1 0.0-0.1 10^3/uL Immature Granulocyte # (Auto) 0.0 0.0-0.1 10^3/uL Sodium Level 140 135-145 MMOL/L Potassium Level 3.8 3.6-5.0 MMOL/L Chloride Level 105 98-107 MMOL/L Carbon Dioxide Level 24 21-32 MMOL/L Anion Gap 11 5-14 MMOL/L Blood Urea Nitrogen 8 7-18 MG/DL Creatinine 0.82 0.60-1.30 MG/DL Estimat Glomerular Filtration Rate 79 BUN/Creatinine Ratio 10 Glucose Level 95 70-105 MG/DL Calcium Level 9.2 8.5-10.1 MG/DL Monoscreen NEGATIVE NEGATIVE My Orders Orders - SHREYA WHEAT APRN Covid 19 Inhouse Test (04/05/21 20:16) Rapid Strep A Screen (04/05/21 20:16) Cbc With Automated Diff (04/05/21 21:35) Monotest (04/05/21 21:35) Basic Metabolic Panel (04/05/21 21:35) Departure Impression Primary Impression: Tonsillitis Disposition: HOME, SELF-CARE Condition: Stable Departure-Patient Inst. Decision time for Depature: 22:03 Referrals: HELDER ELDRIDGE MD (PCP/Family) Primary Care Physician Patient Instructions: Viral Pharyngitis (DC) Add. Discharge Instructions: 1. You can purchase some Cepacol lozenges from [employer] which contain a numbing agent called benzocaine and these can be helpful with symptom control. All discharge instructions reviewed with patient and/or family. Voiced understanding. SHREYA WHEAT APRN Apr 05, 2021 21:00
[2021-04-05 21:44] LABS: BASOPHILS # (AUTO) 0.1 10^3/uL (0.0-0.1); BASOPHILS % (AUTO) 0 % (0-10); EOSINOPHILS # (AUTO) 0.1 10^3/uL (0.0-0.3); EOSINOPHILS % (AUTO) 1 % (0-10); HEMATOCRIT 42 % (35-52); HEMOGLOBIN 14.4 g/dL (11.5-16.0); LYMPHOCYTES # (AUTO) 3.1 10^3/uL (1.0-4.0); LYMPHOCYTES % (AUTO) 26 % (12-44); MEAN CORPUSCULAR HEMOGLOBIN 32 pg (25-34); MEAN CORPUSCULAR HGB CONC 34 g/dL (32-36); MEAN CORPUSCULAR VOLUME 94 fL (80-99); MEAN PLATELET VOLUME 9.6 fL (9.0-12.2); MONOCYTES # (AUTO) 0.8 10^3/uL (0.0-1.0); MONOCYTES % (AUTO) 7 % (0-12); NEUTROPHILS # (AUTO) 7.8 10^3/uL (1.8-7.8); NEUTROPHILS % (AUTO) 66 % (42-75); PLATELET COUNT 211 10^3/uL (130-400); WHITE BLOOD COUNT 11.9 10^3/uL (4.3-11.0)
[2021-04-05 21:55] LABS: POTASSIUM 3.8 MMOL/L (3.6-5.0)
[2021-04-05 21:56] LABS: CALCIUM 9.2 MG/DL (8.5-10.1)
[2021-04-05 22:00] LABS: CREATININE SERUM 0.82 MG/DL (0.60-1.30)
[2021-04-05 22:19] VITALS: BP 127/80
== END 2021-04-05 22:19 | disposition home or self-care (01) ==
LOC: EDUNIT# 19:51 → ER 19:53
DX: J03.90 Acute tonsillitis, unspecified (principal); K21.9 Gastro-esophageal reflux disease without esophagitis; Z79.899 Other long term (current) drug therapy
CPT/HCPCS: 36415; 80048; 85025; 86308

== ENCOUNTER 2021-09-26 08:22 | Outpatient (RCR) | payer MEDICAID ==
[2021-09-26 09:44] LABS: ABSOLUTE RETIC # 65 10e9/uL (24-90); BASOPHILS # (AUTO) 0.1 10^3/uL (0.0-0.1); BASOPHILS % (AUTO) 1 % (0-10); EOSINOPHILS # (AUTO) 0.1 10^3/uL (0.0-0.3); EOSINOPHILS % (AUTO) 2 % (0-10); HEMATOCRIT 44 % (35-52); HEMOGLOBIN 14.8 g/dL (11.5-16.0); LYMPHOCYTES % (AUTO) 20 % (12-44); MEAN CORPUSCULAR HEMOGLOBIN 32 pg (25-34); MEAN CORPUSCULAR HGB CONC 33 g/dL (32-36); MEAN CORPUSCULAR VOLUME 95 fL (80-99); MONOCYTES # (AUTO) 0.8 10^3/uL (0.0-1.0); MONOCYTES % (AUTO) 8 % (0-12); NEUTROPHILS # (AUTO) 6.7 10^3/uL (1.8-7.8); NEUTROPHILS % (AUTO) 69 % (42-75); PLATELET COUNT 242 10^3/uL (130-400); WHITE BLOOD COUNT 9.6 10^3/uL (4.3-11.0)
[2021-09-26 10:06] LABS: ALBUMIN 4.1 GM/DL (3.2-4.5); BILIRUBIN,TOTAL 0.4 MG/DL (0.1-1.0); CALCIUM 8.9 MG/DL (8.5-10.1); CREATININE SERUM 0.71 MG/DL (0.60-1.30); POTASSIUM 4.1 MMOL/L (3.6-5.0); TOTAL PROTEIN 7.4 GM/DL (6.4-8.2)
[2021-09-26 22:19] LABS: HEPATITIS C ANTIBODY C Non-Reactive (Non-Reactive)
== END 2021-10-16 | disposition home or self-care (01) ==
LOC: ONC 08:22
PROVIDERS: ATTEND Internal Medicine Hematology & Oncology
DX: Z45.2 Encounter for adjustment and management of vascular access device (principal); D69.6 Thrombocytopenia, unspecified; Z79.899 Other long term (current) drug therapy
CPT/HCPCS: 80053; 80074; 83615; 85025; 85045; G0463; 36415; 99215

== ENCOUNTER 2022-07-25 05:38 | Outpatient (CLI) | payer MEDICAID ==
[~2022-07-25] VITALS: Ht 152.4 cm; Wt 72.6 kg
== END 2022-07-26 11:03 | disposition home or self-care (01) ==
LOC: PREOP 05:38
PROVIDERS: ATTEND Surgery
DX: Z01.818 Encounter for other preprocedural examination (principal)

== ENCOUNTER → 2023-02-06 | Outpatient (CLI) | payer MEDICAID ==
--- NOTE | 2023-02-06 10:33 | Diagnostic Imaging Report ---
PROCEDURE: MRI left joint lower extremity without contrast. TECHNIQUE: Multiplanar, multisequence non contrast-enhanced MRI of the left lower extremity was accomplished. INDICATION: Left knee pain COMPARISON: None FINDINGS: No acute fracture seen in the left knee. Alignment is normal. No focal bony lesions are seen. Mild heterogeneity of the bone marrow is nonspecific, but can be seen with red marrow. A bone island is noted at the anterior tibia. There is a small left knee joint effusion. The articular cartilage in the patellofemoral compartment is intact. The articular cartilage in the medial compartment is intact. The cartilage in the lateral compartment appears to be intact. The medial meniscus has increased internal signal which does not extend to the articular surface, consistent with intrasubstance degeneration. There is predominantly horizontal tearing of the lateral meniscus at the body extending anteriorly and posteriorly. 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 There appears to be a small meniscal fragment in the medial aspect of the lateral compartment. The anterior and posterior cruciate ligaments are intact. The medial collateral ligament and the lateral collateral ligamentous complex are intact. The extensor mechanism is intact. There is a small Akers's cyst. IMPRESSION: 1. 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 2. Intrasubstance degeneration of the medial meniscus. 3. Small left knee joint effusion. Dictated by: Dictated on workstation # [id number]
== END ==
LOC: RAD 08:22
PROVIDERS: ATTEND Nurse Practitioner Family
DX: S83.282A Other tear of lateral meniscus, current injury, left knee, initial encounter (principal); M17.12 Unilateral primary osteoarthritis, left knee; M25.462 Effusion, left knee
CPT/HCPCS: 73721